=== PATIENT | male | born 1995 | race Hispanic/Latino ===

== ENCOUNTER → 2019-06-08 | Outpatient (CLI) | payer OTHER | END | disposition home or self-care (01) | LOC: SLP 20:27 | PROVIDERS: ATTEND Orthopaedic Surgery | DX: G47.33 Obstructive sleep apnea (adult) (pediatric) (principal); G47.51 Confusional arousals; R06.83 Snoring; R51 Headache; G47.00 Insomnia, unspecified | CPT/HCPCS: 95810 ==